=== PATIENT | male | born 1930 | race Caucasian/White ===

== ENCOUNTER → 2016-12-08 | Outpatient (CLI) | payer MEDICARE ==
[~2016-12-08] MED LIST: ACCUPRIL20 M1 PO; ACCUPRIL20 MG PO; ALMACONE-2 LIQ355 ML PO; ATIVAN-DPS0.5 MG PO; COUMADIN DPS2 MG PO; COUMADIN1 MG PO; COUMADIN4 MG PO; COUMADIN5 MG PO; DAILY MULTIPLE1 EAC1 PO; DOCUSATE CALCI240 MG PO; DURAGESIC50 MCG TD; EXELON1.5 MG PO; FLEXERIL-DPS10 MG PO; FLOMAX DPS0.4 MG PO; HYDRODIURIL-DPS25 MG PO; LASIX DPS20 MG PO; LIPITOR DPS20 MG PO; MAALOX DPS30 ML PO; MIRALAX PACKET17 GM PO; NYSTATIN CREAM15 GM TP; PERCOCET 10 DPS1 TAB PO; POLYETHYLENE GL17 GM PO; RISPERDAL1 MG PO; SURFAK DPS240 MG PO; THEREMS-M1 EACH PO; TYLENOL DP650 MG/20. PO; TYLENOL DPS325 MG PO; ULTRAM DPS50 MG PO
== END | disposition home or self-care (01) ==
LOC: THER.SSS 07:58 → RAD.S 08:00
DX: N17.9 Acute kidney failure, unspecified (principal)

== ENCOUNTER → 2016-12-09 | Outpatient (CLI) | payer MEDICARE | END | disposition home or self-care (01) | LOC: PTH.S 10:40 | DX: R79.89 Other specified abnormal findings of blood chemistry (principal) ==